=== PATIENT | female | born 1990 | race Hispanic/Latino ===

== ENCOUNTER 2018-10-05 02:51 | Inpatient (IN) | payer OTHER, SELFPAY ==
[2018-10-05] MEDS ORDERED: Ringers Lactate 1,000 ML IV PRN (06:18)
[2018-10-05] MEDS ORDERED: METHYLERGONOVINE 0.2MG/ML AMP IM PRN (06:18)
[2018-10-05] MEDS ORDERED: CARBOPROST TROME 250 MCG/ML IM PRN (06:18)
[2018-10-05] MEDS ORDERED: BUTORPHANOL 1 MG/ML INJ IV ONE (06:21)
[2018-10-05 06:43] VITALS: BMI 30.2
[2018-10-05 06:44] LABS: RPR Titer ND
[2018-10-05 06:46] LABS: Urine Appearance CLOUDY; Urine Bilirubin NEGATIVE (NEG); Urine Blood 2+ (NEG); Urine Color YELLOW; Urine Glucose NEGATIVE (NEG); Urine Protein NEGATIVE (NEG); Urine Specific Gravity 1.015 (1.005-1.030); Urine Urobilinogen 0.2 mg/dL (0.2-1.0); Urine pH 6.5 (5.0-7.0)
[2018-10-05 06:49] LABS: Absolute Lymphocytes (CBC) 1.4 K/uL (0.7-4.9); Absolute Neutrophil 13.1 K/uL (1.8-8.0); Basophils % 0.3 % (0-1.3); Eosinophils % 0.1 % (0-4.4); Hematocrit 37.4 % (36.0-45.0); Lymphocytes % 9.2 % (15.3-44.8); MPV 9.8 fL (7.6-11.3); Monocytes % 6.3 % (3.3-12.3); RBC Red Blood Cell Count 4.34 M/uL (3.86-4.86); Urine Microscopic Reflex ORDER UMIC
[2018-10-05] MEDS ORDERED: Ringers Lactate 1,000 ML IV SCH (07:00)
[2018-10-05] MEDS ORDERED: OXYTOCIN/LR 20 UNIT/1,000 ML BAG IV SCH ×2 (07:00→12:00)
[2018-10-05 07:05] LABS: Urine Bacteria 20-50 /HPF (<20); Urine Culture Reflex Order REFLEXED
[2018-10-05] MEDS ORDERED: LIDOCAINE 1% MPF 30 ML VIAL SQ ONE (07:22)
[2018-10-05] MEDS ORDERED: PROMETHAZINE 25 MG/ML VIAL IV PRN (07:58)
[2018-10-05] MEDS ORDERED: ROPIVACAINE HCL 100 ML IV PRN (09:21)
[2018-10-05] MEDS ORDERED: FENTANYL CITR 100 MCG/2 ML IV ONE (09:21)
[2018-10-05] MEDS ORDERED: ROPIVACAINE HCL 0.2% 20ML AMP IV ONE (09:22)
[2018-10-05] MEDS ORDERED: DIPHENHYDRAMINE 25 MG TAB/CAP PO PRN (11:49)
[2018-10-05] MEDS ORDERED: IBUPROFEN 200 MG TAB PO PRN (11:49)
[2018-10-05] MEDS ORDERED: Oxycodone HCl/Acetaminophen 1 TAB TAB PO PRN ×2 (11:49)
[2018-10-05] MEDS ORDERED: BISACODYL 10 MG RECTAL SUPP RECT PRN (11:49)
[2018-10-05] MEDS ORDERED: DOCUSATE NA/SENNA CONC 1 TAB PO PRN (11:49)
--- NOTE | 2018-10-05 14:48 | PREOPHP ---
Date of Admission: 10/05/2018 History Of Present Illness: A 28-year-old 3, para 2, 38 weeks and 1-2 days, came in early [facility]. During period of observation change from 1-3 cm with regular contractions every 3 minutes. She has not changed though in the last half hour, but is still having good firm regular contractions. A ttempted membrane rupture but minimal fluid. I think she may have already experienced membrane ruptu re, the fluid seems to be clear. We will start light Pitocin augmentation. The patient is Rh positi ve, immune to Rubella. Negative beta strep screen. Labor talk given. At this point, the patient sa ys she will try to go natural. Of course she has the option of changing her mind if she chooses. An ticipate delivery sometime later today. SAMANTHA/PRAVEEN Voice ID: [id number]
[2018-10-05 23:53] LABS: RPR (Rapid Plasma Reagin) NON-REACT (NON-REACT)
--- NOTE | 2018-10-06 07:58 | OP ---
Surgeon: Ramon Velez MD Procedure Note: A 28-year-old, 3, para 2, at 38 weeks 2 days, came in active labor. Had epi dural anesthesia during her labor. Second stage of 10-15 minutes or less. Spontaneous vaginal deliv dmitriy of an estimated 7-pound male infant, Apgars 9 and 9. No episiotomy. No lacerations. Damien munoz elivery of the placenta, which was inspected and noted to be intact and normal. A 300 cc or less blo od loss. Rh positive, immune to Rubella. Negative beta strep screen. Tolerated all procedures well . Final Diagnoses: Term intrauterine 38 weeks 2 days, spontaneous vaginal delivery, epidural anesthesia. SAMANTHA/PRAVEEN Voice ID: [id number] Report ID: [id number]
[2018-10-06 08:10] VITALS: TEMP 96.9
[2018-10-06 11:10] VITALS: BP 116/70
--- NOTE | 2018-10-07 08:32 | DS ---
Date of Discharge: 10/06/2018 Hospital Course: A 28-year-old female, 3, para 2, 38 weeks 2 days, came in active labor. Cortez bsequently delivered uneventfully of an estimated 7-pound male , Apgars 9 and 9. No episiotomy . No lacerations. Schultze delivery of the placenta. Estimated blood loss 300 cc. Rh positive, im mune to Rubella. Negative beta strep screen. ; afebrile, ambulating and voiding. Lochia is normal. No post epidural problems. Tdap has been discussed with the patient numerous times durin g her and again today. Tdap offered. She will go home this afternoon. I have given her p rescription for tramadol for analgesia, although she may elect to take Motrin instead. Full discussi on about breast-feeding. No reported problems this morning. Final Diagnoses: Intrauterine gestation, 38 weeks 2 days, spontaneous vaginal delivery. Epidural an esthesia. Tdap offered. SAMANTHA/PRAVEEN Voice ID: [id number] Report ID: [id number]
[2018-10-11 20:27] LABS: HBsAG Nonreactive (Nonreactive)
== END 2018-10-06 14:20 | disposition home or self-care (01) | DRG 807 ==
LOC: L&D 02:51 → 2ND-WC 05:22
PROVIDERS: ADMIT Specialist; ATTEND Specialist
PROC: 10E0XZZ Delivery of Products of Conception, External Approach (ICD-10-PCS; principal; 2018-10-05)
DX: O80 Encounter for full-term uncomplicated delivery (principal); Z37.0 Single live birth; Z3A.38 38 weeks gestation of pregnancy
CPT/HCPCS: 36415; 81003; 81015; 85025; 86592; 86901; 87086; 87088; 87340; J0595; J2210; J2550; J2590; J2795; J3010